=== PATIENT | male | born 1995 | race Caucasian/White ===

== ENCOUNTER → 2023-12-28 11:52 | Outpatient (REF) | payer OTHER, SELFPAY ==
[2023-12-28 12:45] LABS: % Basophils 0.3 % (0-2); % Eosinophils 0.5 % (0-6); % Immature Granulocytes 0.2 % (0-0.5); % Monocytes 5.2 % (1.7-9.3); % Neutrophils 61.8 % (42.2-75.2); Absolute Monocytes 0.3 10^3/uL (0.1-0.6); Absolute Neutrophils 3.8 10^3/uL (1.4-6.5); Hematocrit 44.6 % (39.0-52.0); Hemoglobin 15.2 g/dL (13.0-18.0); Mean Corp Hgb Conc. 34.1 g/dL (33.0-37.0); Mean Corpuscular Hgb 28.9 pg (27.0-31.0); Mean Corpuscular Volume 84.8 fL (80.0-94.0); Mean Platelet Volume 10.6 fL (7.4-10.4); Nucleated Red Blood Cells % 0 % (-); Platelet Count 309 10^3/uL (130-400); Red Blood Cell Count 5.26 10^6/uL (4.70-6.10); Red Cell Dist. Width 12.1 % (11.5-14.5); White Blood Cell Count 6.2 10^3/uL (4.8-10.8)
[2023-12-28 13:01] LABS: Erythrocyte Sed Rate 10 mm/hour (0-20)
[2023-12-28 13:44] LABS: C-Reactive Protein < 5.00 mg/L (0.0-10.00)
[2023-12-28 13:47] LABS: ALT (SGPT) 28 U/L (0-50); AST (SGOT) 28 U/L (17-59); Albumin 5.1 g/dl (3.5-5.0); Alkaline Phosphatase 48 U/L (38-126); Blood Urea Nitrogen 14 mg/dl (9-20); Calcium 9.9 mg/dl (8.4-10.2); Carbon Dioxide 27 mmol/L (22-30); Chloride 101 mmol/L (98-107); Glucose 76 mg/dl (70-99); Potassium 4.5 mmol/L (3.5-5.1); Sodium 139 mmol/L (135-145); Total Bilirubin 0.7 mg/dl (0.2-1.3); Total Protein 8.1 g/dl (6.3-8.2); eGFR > 60.00
== END ==
LOC: REG 11:52
PROVIDERS: ATTENDING PHYSICIAN Internal Medicine Gastroenterology
DX: K50.80 Crohn's disease of both small and large intestine without complications (principal)
CPT/HCPCS: 36415; 80053; 82248; 85025; 85652; 86140

== ENCOUNTER → 2024-01-14 06:35 | Day surgery (SDC) | payer OTHER, SELFPAY | LOC: GI 06:35 | PROVIDERS: ATTENDING PHYSICIAN Internal Medicine Gastroenterology | DX: Z12.11 Encounter for screening for malignant neoplasm of colon (principal); K64.8 Other hemorrhoids; K50.10 Crohn's disease of large intestine without complications; K63.89 Other specified diseases of intestine; K52.89 Other specified noninfective gastroenteritis and colitis | CPT/HCPCS: 45380; 88305 ==

== ENCOUNTER → 2024-08-30 09:05 | Outpatient (REF) | payer OTHER, SELFPAY ==
[2024-08-30 10:07] LABS: % Basophils 0.4 % (0-2); % Eosinophils 0.8 % (0-6); % Immature Granulocytes 0.1 % (0-0.5); % Neutrophils 51.7 % (42.2-75.2); Absolute Eosinophils 0.1 10^3/uL (0-0.7); Absolute Lymphocytes 2.9 10^3/uL (1.2-3.4); Absolute Monocytes 0.5 10^3/uL (0.1-0.6); Absolute Neutrophils 3.7 10^3/uL (1.4-6.5); Hematocrit 46.7 % (39.0-52.0); Hemoglobin 16.1 g/dL (13.0-18.0); Mean Corp Hgb Conc. 34.5 g/dL (33.0-37.0); Mean Corpuscular Hgb 29.5 pg (27.0-31.0); Mean Corpuscular Volume 85.7 fL (80.0-94.0); Mean Platelet Volume 9.6 fL (7.4-10.4); Nucleated Red Blood Cells % 0 % (-); Platelet Count 309 10^3/uL (130-400); Red Blood Cell Count 5.45 10^6/uL (4.70-6.10); Red Cell Dist. Width 11.9 % (11.5-14.5); White Blood Cell Count 7.2 10^3/uL (4.8-10.8)
[2024-08-30 11:21] LABS: ALT (SGPT) 26 U/L (0-50); AST (SGOT) 26 U/L (17-59); Albumin 4.9 g/dl (3.5-5.0); Alkaline Phosphatase 43 U/L (38-126); Blood Urea Nitrogen 15 mg/dl (9-20); Calcium 9.5 mg/dl (8.4-10.2); Carbon Dioxide 30 mmol/L (22-30); Chloride 102 mmol/L (98-107); Glucose 64 mg/dl (70-99); Potassium 4.8 mmol/L (3.5-5.1); Sodium 144 mmol/L (135-145); eGFR > 60.00
[2024-08-30 11:30] LABS: Total Iron Binding Capacity 324 ug/dl (261-462)
[2024-08-30 11:40] LABS: C-Reactive Protein < 5.00 mg/L (0.0-10.00)
[2024-08-30 12:22] LABS: Erythrocyte Sed Rate 8 mm/hour (0-20)
[2024-08-31 20:31] LABS: Hepatitis B Surface Antigen Negative (Negative)
[2024-08-31 20:49] LABS: Hepatitis B Core Ab, Total Negative (Negative); Hepatitis B Surface Antibody Positive
[2024-09-01 23:07] LABS: Quantiferon Mitogen minus NIL 9.97 IU/mL; Quantiferon NIL 0.03 IU/mL; Quantiferon Plus TB2 minus NIL 0.01 IU/mL (<=0.34); Quantiferon TB Gold Plus Negative (Negative)
== END ==
LOC: REG 09:05
PROVIDERS: ATTENDING PHYSICIAN Internal Medicine Gastroenterology
DX: K50.811 Crohn's disease of both small and large intestine with rectal bleeding (principal)
CPT/HCPCS: 36415; 80053; 83550; 85025; 85652; 86140; 86480; 86704; 86706; 87340

== ENCOUNTER → 2025-05-21 12:41 | Outpatient (REF) | payer OTHER, SELFPAY ==
[2025-05-21 13:26] LABS: Hematocrit 44.2 % (39.0-52.0); Hemoglobin 15.0 g/dL (13.0-18.0); Mean Corp Hgb Conc. 33.9 g/dL (33.0-37.0); Mean Corpuscular Volume 84.2 fL (80.0-94.0); Nucleated Red Blood Cells % 0 % (-); Platelet Count 328 10^3/uL (130-400); Red Cell Dist. Width 12.3 % (11.5-14.5)
[2025-05-21 13:48] LABS: ALT (SGPT) 30 U/L (0-50); AST (SGOT) 25 U/L (17-59); Albumin 4.9 g/dl (3.5-5.0); Alkaline Phosphatase 42 U/L (38-126); Blood Urea Nitrogen 15 mg/dl (9-20); Calcium 10.4 mg/dl (8.4-10.2); Carbon Dioxide 30 mmol/L (22-30); Chloride 103 mmol/L (98-107); Glucose 89 mg/dl (70-99); Potassium 4.7 mmol/L (3.5-5.1); Sodium 141 mmol/L (135-145); Total Protein 8.4 g/dl (6.3-8.2); eGFR > 60.00
[2025-05-21 13:52] LABS: C-Reactive Protein < 5.00 mg/L (0.0-10.00)
[2025-05-21 18:41] LABS: Hepatitis B Surface Antigen Negative (Negative)
== END ==
LOC: REG 12:41
PROVIDERS: ATTENDING PHYSICIAN Internal Medicine Gastroenterology
DX: K50.80 Crohn's disease of both small and large intestine without complications (principal)
CPT/HCPCS: 36415; 80053; 82248; 85025; 85652; 86140; 87340

== ENCOUNTER 2025-07-17 06:18 | Day surgery (SDC) | payer OTHER, SELFPAY ==
[2025-07-17] VITALS (7 sets, daily range): BP systolic 121–146; BP diastolic 57–87; BMI 27.6
[2025-07-17] MEDS: TYLENOL 1000 MG PO (12:54)
[2025-07-17] MEDS: NORMOSOL-R/PLASMALYTE-A 1000 IV (13:01)
[2025-07-17] MEDS: HEPARIN 5000 UNITS SC (14:11)
--- NOTE | 2025-07-17 15:42 | OR.RPT ---
Operative Report
Operative Report
Primary Surgeon: Agatha
Assisting: Jb GALVIN
Pre-op Diagnosis: Nodular appendix
Post-op Diagnosis: Chronic appendicitis
Procedure Performed: Laparoscopic appendectomy
Anesthesia Type: GETA
Specimen / Cultures: Appendix
Estimated Blood Loss: 10cc
Complications: None immediate
Operative Findings: Severely scarred socked in appendix, ascending colon totally encased in fat
Date of Surgery: 07/17/25
Indications: This 30M developed Crohn's disease and on routine imaging was found to have a nodular abnormal appearing appendix. Laparoscopic appendectomy was elected.
Description of procedure: The patient was placed on the operating table in the supine position. General anesthesia was induced. A time-out was completed verifying correct patient, procedure, site, positioning, and special equipment prior to
beginning this procedure. An orogastric tube was placed. The abdomen was prepped and draped in the usual sterile fashion. A stab incision was made in left upper quadrant and the Veress needle was inserted. Proper position was confirmed by aspiration
and saline meniscus test. The abdomen was insufflated with carbon dioxide to a pressure of 12 mmHg. The patient tolerated insufflation well.
A 5mm optical trocar was then inserted at the left lower quadrant. The laparoscope was inserted and the abdomen inspected. No injuries from initial trocar placement or Veress needle insertion were noted. Additional trocars were then inserted in the
following locations: a 12-mm trocar at the umbilicus and a 5-mm trocar midline in the suprapubic space. The abdomen was inspected and no abnormalities were found. The table was placed in the Trendelenburg position with the right side up. The
appendix was encased in scar and fat, and the ascending colon and cecum wwere also totally encased in fat. The terminal ileum was identified and traced distally to the sail of [place]. The surround fatty tissue was carefully dissected until the tip
of the appendix came into view. The tip of the appendix was gently grasped with an atraumatic grasper and retracted toward the patient�s feet and abdominal wall. This maneuver exposed the appendiceal blood supply which was controlled with the
Ligasure device. Surrounding fibrotic tissue was teased away in a cephalad direction until the base of the appendix was identified. Following this, a laparoscopic linear cutting stapler with a 45mm daily load was deployed and used to transect the
appendix at its base incorporating a cuff of cecum. The appendix was placed in an endoscopic retrieval bag, removed through the umbilical port, and passed off the table as a specimen.
We then turned our attention to the staple line, which was noted to be hemostatic. The umbilical trocar site was closed at the fascial level laparoscopically with 2-0 PDS under direct vision. Secondary trocars were removed under direct vision and
noted to be hemostatic. The laparoscope was withdrawn and the abdomen was allowed to collapse. The skin was closed with subcuticular sutures of 4-0 monocryl and topical skin adhesive. The orogastric tube was removed.
The patient tolerated the procedure well and was taken to the postanesthesia care unit in stable condition.
The assistance of Jb GALVIN was required due to the complexity of the procedure. During the procedure she assisted with retraction, resection, and closure of the wound.
== END 2025-07-17 17:30 | disposition home or self-care (01) ==
LOC: SDS 06:18
PROVIDERS: ATTENDING PHYSICIAN Surgery
DX: K35.80 Unspecified acute appendicitis (principal); K38.8 Other specified diseases of appendix
CPT/HCPCS: 44970; 88304